=== PATIENT | female | born 1960 | race Caucasian/White ===

== ENCOUNTER → 2017-03-18 | Outpatient (CLI) | payer MEDICARE ==
--- NOTE | 2017-03-18 15:04 | RADIOLOGY REPORT (SQ) ---
EXAM DESCRIPTION: CAROTID DOPPLER COMPLETED DATE/TIME: 03/18/2017 11:25 am REASON FOR STUDY: STENOSIS I65.23 OCCLUSION AND STENOSIS OF BILATERAL CAROTID ARTERIES COMPARISON: None. TECHNIQUE: Grayscale ultrasound, Doppler velocity and spectra, and color Doppler images acquired of the extra-cranial carotid and vertebral arteries. Images stored on PACS. LIMITATIONS: None. FINDINGS: RIGHT CAROTID CCA Velocities: Within normal limits. Diffuse intimal thickening right common carotid artery. ICA Velocities Peak systolic 1.24 m/s. End diastolic 0.38 m/s. Proximal ICA/CCA peak systolic ratio 1.4. Mixed calcific and noncalcific plaque at the right carotid bifurcation. Velocities suggest less than 50% diameter stenosis. LEFT CAROTID CCA Velocities: Within normal limits. Diffuse intimal thickening left common carotid artery. ICA Velocities Peak systolic 0.83 m/s. End diastolic 0.27 m/s. Proximal ICA/CCA peak systolic ratio 0.8. Mixed calcific and noncalcific plaque at the left carotid bifurcation. Velocities distal to the plaq ue suggest less than 50% diameter narrowing. VERTEBRAL ARTERIES: Antegrade flow. Normal waveforms. SUBCLAVIAN ARTERIES: Not examined OTHER: No other significant finding. IMPRESSION: Atherosclerotic disease at the carotid bifurcations bilaterally. No flow significant st enosis by velocity criteria. COMMENT: Quality ID #[id number]: Velocity criteria are extrapolated from the diameter data as defined by t he Society of Radiologists in Ultrasound Consensus Conference. Radiology 2003: 229; 340-346. TECHNICAL DOCUMENTATION: JOB ID: [id number] [employer]- All Rights Reserved
== END ==
LOC: SP 10:44
PROVIDERS: ATTEND Family Medicine
DX: I65.23 Occlusion and stenosis of bilateral carotid arteries (principal)
CPT/HCPCS: 93880